=== PATIENT | female | born 1940 | race Caucasian/White ===

== ENCOUNTER 2019-06-10 12:48 | Emergency (ER) | payer MEDICARE, OTHER ==
[~2019-06-10] VITALS: Ht 162.6 cm; Wt 72.6 kg
[~2019-06-10 12:48] MED LIST: ASPIR 8181 M1; COLACE100 MG; GABAPENTIN600 M1; NORCO 5-325 TA1 EACH; NORVASC5 MG; PROAIR HFA8.5 GM INH; XANAX 0.5 MG0.5 MG PO; XARELTO10 MG
[2019-06-10] MEDS ORDERED: OMEPRAZOLE 20 M20 M1 PO (13:17)
[2019-06-10] MEDS ORDERED: CARAFATE 1 GM TA1 GM PO (13:17)
[2019-06-10] MEDS ORDERED: HYDROXYZINE HCL25 M2 PO (14:15)
[2019-06-10 14:16] VITALS: BP 126/69
== END 2019-06-10 14:17 | disposition home or self-care (01) ==
LOC: M.ERS 12:48
DX: B02.9 Zoster without complications (principal); Z88.2 Allergy status to sulfonamides; Z88.5 Allergy status to narcotic agent; Z79.82 Long term (current) use of aspirin